=== PATIENT | male | born 1960 ===

== ENCOUNTER → 2018-01-07 | Outpatient (CLI) | payer MEDICARE | END | disposition home or self-care (01) | LOC: RADMN 14:21 | PROVIDERS: ATTEND Internal Medicine Geriatric Medicine | DX: Z45.2 Encounter for adjustment and management of vascular access device (principal); L03.818 Cellulitis of other sites; Z79.2 Long term (current) use of antibiotics | CPT/HCPCS: 36569; 76000 ==